=== PATIENT | female | born 1975 | race Caucasian/White ===

== ENCOUNTER 2022-12-01 16:37 | Emergency (ER) | payer OTHER ==
[~2022-12-01] VITALS: Ht 157.5 cm; Wt 65.8 kg
[~2022-12-01 16:37] MED LIST: SEPTRA DS TABLE1 TAB PO
== END 2022-12-01 20:42 | disposition home or self-care (01) ==
LOC: ER 16:37
DX: M25.571 Pain in right ankle and joints of right foot (principal); R07.0 Pain in throat